=== PATIENT | male | born 1960 | race Caucasian/White ===

== ENCOUNTER 2016-10-16 16:53 | Emergency (ER) | payer BC ==
[2016-10-16 17:02] VITALS: BP 138/85
--- NOTE | 2016-10-16 17:11 | UC ---
Abdominal Pain Male HPI - HPI Summary HPI Summary: 56 y/o male presents to the urgent care c/o RLQ abdominal pain with sudden onset at 13:30pm. Pt states the pain is 3/10 constant with radiation to the back. Pt states he ate around 1500 his lunch w/o any improvement of pain. He had a normal BM this morning . He states urinary frequency and hesitancy for the past 2 hrs. Pt denies N/V/D, fever, SOB, chest pain, - History of Current Complaint Chief Complaint: UCAbdominalPain Stated Complaint: ABD PAIN Time Seen by Provider: 10/16/16 17:03 Hx Obtained From: Patient Onset/Duration: Sudden Onset - 13:30, Lasting Hours, Worse Since Timing: Constant Severity Initially: Mild Severity Currently: Mild Pain Intensity: 3 Pain Scale Used: 0-10 Numeric Location: Discrete At: RLQ Radiates: Yes Radiates to: Back Character: Colicy Aggravating Factor(s):: Nothing Alleviating Factor(s): Nothing Associated Signs And Symptoms: Positive: Back Pain - RT side back pain, Urinary Symptoms - hesitancy and frequency. Negative: Diaphoresis, Fever, Chest Pain, Dizzy, Constipation, Vomiting, Diarrhea, Penile Discharge - Risk Factors Testicular Torsion: Negative Cardiac Risk Factors: Negative - Allergies/Home Medications Allergies/Adverse Reactions: Allergies Allergy/AdvReac Type Severity Reaction Status Date / Time Penicillins Allergy Mild foot/toe Verified 07/05/15 07:53 edema PMH/Surg Hx/FS Hx/Imm Hx Previously Healthy: Yes Other Neurological History: Tonic Clonic seizures - Surgical History Surgical History: Yes Surgery Procedure, Year, and Place: 2 moles removed. - Family History Known Family History: Positive: Cardiac Disease - Social History Occupation: Employed Part-time Lives: With Family Alcohol Use: Occasionally Substance Use Type: None Smoking Status (MU): Never Smoked Tobacco Review of Systems Constitutional: Negative Skin: Negative Eyes: Negative ENT: Negative Respiratory: Negative Cardiovascular: Negative Gastrointestinal: Abdominal Pain - RLQ Genitourinary: Frequency, Other - hesitancy Motor: Negative Neurovascular: Negative Musculoskeletal: Other: - back pain Neurological: Negative Psychological: Negative Is Patient Immunocompromised?: Yes All Other Systems Reviewed And Are Negative: Yes Physical Exam Triage Information Reviewed: Yes Appearance: Well-Appearing, No Pain Distress, Well-Nourished Vital Signs: Initial Vital Signs Temp 98.0 F 09/07/17 16:58 Pulse 62 10/16/16 16:58 Resp 16 10/16/16 16:58 BP 138/85 10/16/16 16:58 Pulse Ox 100 10/16/16 16:58 Vital Signs Reviewed: Yes Eye Exam: Normal Eyes: Positive: Conjunctiva Clear - PERRLA, EOMI ENT Exam: Normal ENT: Positive: Normal ENT inspection, Hearing grossly normal, Pharynx normal, TMs normal Dental Exam: Normal Neck exam: Normal Neck: Positive: Supple, Nontender, No Lymphadenopathy Respiratory Exam: Normal Respiratory: Positive: Chest non-tender, Lungs clear, Normal breath sounds Cardiovascular Exam: Normal Cardiovascular: Positive: RRR, No Murmur, Pulses Normal, Brisk Capillary Refill Abdomen Description: Positive: No Organomegaly, Soft, CVA Tenderness (R), McBurney's Point Tenderness - on deep palpation. Negative: CVA Tenderness (L) Bowel Sounds: Positive: Present Musculoskeletal Exam: Normal Musculoskeletal: Positive: Strength Intact, ROM Intact, No Edema Neurological Exam: Normal Neurological: Positive: Alert Psychological Exam: Normal Skin Exam: Normal Abd Pain Male Course/Dx - Course Course Of Treatment: 56 y/o male presents to the urgent care c/o RLQ abdominal pain with sudden onset at 13:30pm. Pt states the pain is 3/10 constant with radiation to the back. Pt states he ate around 1500 his lunch w/o any improvement of pain. He had a normal BM this morning . He states urinary frequency and hesitancy for the past 2 hrs. Pt denies N/V/D, fever, SOB, chest pain. Hx obtained. UA ordered. Result:Positive blood 2+. Pt with RT CVA tenderness. Abdominal and pelvic CT ordered w/o contrast ordered to r/o kidney stone. Impression. Mild RT hydronephrosis traced to a 2mm stone at the distal margin of the RT Uterovesical juntion. Pt Rx Flomax PO, and Toradol PO to alleviate symptoms and help to pass the stone. Pt advised to f/u with Urologist in 2 days for further management. If he develop fever, N/V or increase pain to go immediately to the ER for further managment. Pt understood and agreed and left the clinic ambulating A&OX3 and hemodinamically stable. - Differential Dx/Clinical Impression Differential Diagnosis/HQI/PQRI: Appendicitis, Renal Colic, Ureteral Stone, Urinary Tract Infection Provider Diagnoses: 1- RLQ abdominal pain. 2-RT side lower back pain with a 2mm kidney stone Discharge - Discharge Plan Condition: Stable Disposition: HOME Prescriptions: Ketorolac TAB * [Toradol TAB *] 10 mg PO Q6H #12 tab Tamsulosin CAP* [Flomax CAP*] 0.4 mg PO BEDTIME #7 cap Patient Education Materials: Kidney Stones (ED) Ref[place]: [facility] [place] [facility] [place]] - 2 Days No Primary Care Phys,NOPCP [Primary Care Provider] - Son Thomason MD [Medical Doctor] - 1 Day Additional Instructions: 1-Please take medications as directed to alleviate pain and help you pass the stone. 2-Please Increase fluid intake to help pass the urine 3- Please f/u Urologist Dr Aleman or your PCP in 2-3 days if not improvement of symptoms for further evaluation and treatment. 4- If you develop fever, increase pain, nausea and vomiting go immediately to the ER for further management
[2016-10-16] MEDS ORDERED: Ondansetron ODT TAB* 4 MG PO ONE (17:46)
[2016-10-16] MEDS ORDERED: Ketorolac INJ* 60 MG/2 ML VIAL IM ONE (17:46)
--- NOTE | 2016-10-16 18:34 | RAD ---
INDICATION: RIGHT lower back pain and hematuria. Assess for kidney stone. COMPARISON: No relevant prior exams available on the [facility] PACS for comparison. TECHNIQUE: Multidetector CT images were obtained from the lung bases to the ischial tuberosities. Evaluation of the viscera is limited without IV contrast. Multiplanar reformation. REPORT: Unremarkable visualized inferior thorax. Negative for CT abnormality of the unenhanced liver, gallbladder, pancreas, spleen. Negative for CT abnormality of the upper GI, small bowel, diminutive appendix visualized medial to the cecum, or colon. Negative for ascites or free air. Small fat-containing umbilical hernia without inflammatory change. Normal adrenal glands. Mild RIGHT hydronephrosis is traced to a 2 mm stone at the distal margin of the RIGHT ureterovesicular junction. Punctate 1 mm upper pole calyceal stone of the RIGHT kidney. Negative for LEFT nephrolithiasis or hydronephrosis. Aside from the RIGHT UVJ stone the partially distended urinary bladder is unremarkable. Symmetric seminal vesicles. Negative for lymphadenopathy. Normal diameter abdominal aorta and iliac arteries. Physiologic distention of the IVC. Negative for suspicious osseous lesions. IMPRESSION: Mild RIGHT hydronephrosis is traced to a 2 mm stone at the distal margin of the RIGHT ureterovesicular junction.
== END 2016-10-16 18:54 | disposition home or self-care (01) ==
LOC: UCEAST 16:53
DX: R10.31 Right lower quadrant pain (principal); M54.5 Low back pain; N13.2 Hydronephrosis with renal and ureteral calculous obstruction; Z88.0 Allergy status to penicillin
CPT/HCPCS: 74176; 81003; 99212; A9270-GY; G0463; J1885